=== PATIENT | male | born 1995 | race Caucasian/White ===

== ENCOUNTER 2022-10-14 05:07 | Emergency (ER) | payer OTHER, SELFPAY ==
--- NOTE | 2022-10-14 | ECG_ITS ---
Test Reason : CHEST PAIN Blood Pressure : / mmHG Vent. Rate : 103 BPM Atrial Rate : 103 BPM P-R Int : 146 ms QRS Dur : 090 ms QT Int : 324 ms P-R-T Axes : 023 -04 026 degrees QTc Int : 424 ms Sinus tachycardia Minimal voltage criteria for LVH, may be normal variant ( R in aVL ) Septal infarct , age undetermined Abnormal ECG No previous ECGs available Referred By: Generic ED Physician Electronically Signed By:FAUSTO CRAFT MD
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
[2022-10-14 05:26] VITALS: BP 133/94; PULSE 113; RESP 20; O2SAT 97; BMI 38.0
[2022-10-14 05:43] LABS: Basophils Absolute Auto 0.1 X10*3/uL (0.0-0.2); Basophils Percent Auto 0.5 % (0-2); Eosinophils Absolute Auto 0.2 X10*3/uL (0.0-0.4); Eosinophils Percent Auto 1.4 % (0-4); Hematocrit 45.3 % (42.0-52.0); Hemoglobin 16.5 g/dl (14.0-18.0); Imm Gran Abs Auto 0.06 X10*3/uL (0.00-0.03); Imm Gran Pct Auto 0.6 % (0.0-0.4); Lymphocytes Absolute Auto 1.7 X10*3/uL (1.2-4.9); Lymphocytes Percent Auto 15.8 % (20-40); MANUAL DIFF FLAG NO; Mean Corpuscular HGB Conc 36.4 g/dl (31.0-36.0); Mean Corpuscular Hemoglobin 31.4 pg (27.0-33.0); Mean Corpuscular Volume 86.3 fL (80.0-98.0); Mean Platelet Volume 11.9 fL (9.4-12.4); Monocytes Absolute Auto 0.8 X10*3/uL (0.1-1.2); Monocytes Percent Auto 7.9 % (2-11); Neutrophils Absolute Auto 7.8 x10*3/uL (2.0-8.3); Neutrophils Percent Auto 73.8 % (45-73); Platelet Count 165 X10*3/uL (160-400); Red Blood Count 5.25 X10*6/uL (4.60-5.80); Red Cell Distribution Width 12.2 % (11.0-16.0); White Blood Count 10.5 X10*3/uL (4.8-10.8)
[2022-10-14 05:46] LABS: VBG Base Excess -1.1 mmol/L; VBG HCO3 22 mmol/L (22-26); VBG pCO2 34 mmHg; VBG pH 7.42 (7.32-7.43); VBG pO2 67 mmHg
[2022-10-14 05:47] LABS: Carbon Monoxide POC 2.1 %
[2022-10-14 05:48] LABS: Carbon Monoxide Refer to POC result; Venous Blood Gas Refer to POC result
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
[2022-10-14 06:04] LABS: Anion Gap 18 (12-20); Blood Urea Nitrogen 16 mg/dL (9-16); Calcium 9.8 mg/dL (8.4-10.2); Carbon Dioxide 22 mmol/L (22-29); Chloride 107 mmol/L (96-108); Creatinine Clr Calc Pharmacy 140.1; Estimated Glomerular Filt Rate > 60; Glucose Random 97 mg/dL (60-115); Sodium 143 mmol/L (135-145)
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
[2022-10-14 06:43] VITALS: PULSE 98; RESP 18; O2SAT 95
== END 2022-10-14 06:48 | disposition home or self-care (01) ==
PROVIDERS: Emergency Provider Emergency Medicine
DX: Z04.2 Encounter for examination and observation following work accident (principal); T59.811A Toxic effect of smoke, accidental (unintentional), initial encounter; R07.89 Other chest pain; R05.9 Cough, unspecified; R11.0 Nausea; R51.9 Headache, unspecified; Y92.019 Unspecified place in single-family (private) house as the place of occurrence of the external cause
CPT/HCPCS: 36415; 71046; 80048; 82375; 82803; 85025; 93005; 99283; 99285

== ENCOUNTER 2022-10-16 16:55 | Emergency (ER) | payer OTHER, SELFPAY ==
[2022-10-16 16:57] VITALS: BP 135/79; PULSE 94; RESP 18; TEMP 36.8; O2SAT 99; BMI 38.0
--- NOTE | 2022-10-16 17:16 | PC.NURSE ---
SEEN AND EVALUATED BY PROVIDER IN TRIAGE
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
== END 2022-10-16 17:16 | disposition home or self-care (01) ==
PROVIDERS: Emergency Provider Emergency Medicine
DX: Z02.9 Encounter for administrative examinations, unspecified (principal)
CPT/HCPCS: 99282

== ENCOUNTER 2023-02-18 01:57 | Emergency (ER) | payer OTHER, SELFPAY ==
[2023-02-18 02:09] VITALS: BP 139/90; PULSE 100; RESP 20; TEMP 36.8; O2SAT 94; BMI 38.0
[2023-02-18 03:01] VITALS: BP 122/81; PULSE 96; RESP 16; TEMP 36.8; O2SAT 98
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
[2023-02-18] MEDS: Post Exposure Medication Kit 1 KIT PO (03:46)
[2023-02-18 03:58] LABS: Basophils Absolute Auto 0.1 X10*3/uL (0.0-0.2); Basophils Percent Auto 0.6 % (0-2); Eosinophils Absolute Auto 0.2 X10*3/uL (0.0-0.4); Eosinophils Percent Auto 1.7 % (0-4); Imm Gran Abs Auto 0.05 X10*3/uL (0.00-0.03); Imm Gran Pct Auto 0.6 % (0.0-0.4); Lymphocytes Absolute Auto 2.5 X10*3/uL (1.2-4.9); Lymphocytes Percent Auto 27.6 % (20-40); MANUAL DIFF FLAG NO; Mean Corpuscular HGB Conc 34.8 g/dl (31.0-36.0); Mean Corpuscular Volume 89.1 fL (80.0-98.0); Mean Platelet Volume 11.8 fL (9.4-12.4); Monocytes Absolute Auto 0.8 X10*3/uL (0.1-1.2); Monocytes Percent Auto 8.4 % (2-11); Neutrophils Absolute Auto 5.5 x10*3/uL (2.0-8.3); Neutrophils Percent Auto 61.1 % (45-73); Platelet Count 179 X10*3/uL (160-400); Red Blood Count 5.16 X10*6/uL (4.60-5.80); Red Cell Distribution Width 12.2 % (11.0-16.0)
[2023-02-18 04:13] LABS: Alanine Aminotransferase 102 U/L (0-40); Albumin Level 4.4 g/dL (3.5-5.0); Alkaline Phosphatase 72 U/L (39-117); Aspartate Amino Transferase 47 U/L (5-37); Bilirubin Direct 0.2 mg/dL (0.0-0.5); Bilirubin Total 0.5 mg/dL (0.0-1.0); Creatinine Clr Calc Pharmacy 144.1; Estimated Glomerular Filt Rate > 60; Total Protein 7.2 g/dL (6.5-8.0)
[2023-02-19 04:30] LABS: HBsAGNum1 0.32 S/CO (0.00-0.99); HIV AB/AG Nonreactive (Nonreactive); HIV Num 1 0.05 S/CO (0.00-0.99); Hepatitis B Core Antibody Nonreactive (Nonreactive); Hepatitis B Surface Antigen Negative (Negative); ~HepC Num1 0.06 S/CO (0.00-0.79); ~Hepatitis C Antibody Nonreactive (Nonreactive)
[2023-02-19 04:45] LABS: ~Hepatitis B Surface Antibody NONREACTIVE (Nonreactive)
== END 2023-02-18 04:16 | disposition home or self-care (01) ==
PROVIDERS: Emergency Provider Emergency Medicine
DX: Z20.828 Contact with and (suspected) exposure to other viral communicable diseases (principal); Z79.899 Other long term (current) drug therapy
CPT/HCPCS: 36415; 80076; 82565; 85025; 86704; 86706; 86803; 87340; 87389; 99283

== ENCOUNTER 2024-07-12 20:37 | Emergency (ER) | payer OTHER, SELFPAY ==
--- NOTE | ~2024-07-12 | XR_ITS ---
EXAMINATION: XR HAND, LEFT CLINICAL INFORMATION: unable to extend 4-5th digits COMPARISON: None available. TECHNIQUE: PA, lateral, and oblique views of the left hand. FINDINGS: The bones and soft tissues are normal. No fracture. Alignment is anatomic. Joint spaces are maintained. No erosions or soft tissue calcifications. XR/XR hand LT min 3V IMPRESSION: Normal left hand. Electronically signed by: Ana Wallace MD 07/12/2024 09:48 PM [facility]
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
[2024-07-12 20:47] VITALS: BP 143/92; PULSE 104; RESP 18; TEMP 36.4; O2SAT 97; BMI 38.0
[2024-07-12 22:13] VITALS: BP 151/87; PULSE 100; RESP 18; TEMP 36.9; O2SAT 97
== END 2024-07-12 22:14 | disposition home or self-care (01) ==
PROVIDERS: Emergency Provider Emergency Medicine
DX: S64.02XA Injury of ulnar nerve at wrist and hand level of left arm, initial encounter (principal); Y35.891A Legal intervention involving other specified means, law enforcement official injured, initial encounter; Y93.89 Activity, other specified; Y92.9 Unspecified place or not applicable; Y99.0 Civilian activity done for income or pay
CPT/HCPCS: 73130; 99283; 99284